=== PATIENT | male | born 2000 | race Caucasian/White ===

== ENCOUNTER 2025-01-08 11:44 | Emergency (ER) | payer BC ==
[2025-01-08 13:18] LABS: BASOPHILS ABSOLUTE AUTO 0.07 K/uL (0.00-0.10); EOSINOPHILS ABSOLUTE AUTO 0.26 K/uL (0.00-0.40); EOSINOPHILS PERCENT AUTO 3.7 % (0.0-5.4); HEMATOCRIT 39.3 % (38.4-49.7); HEMOGLOBIN 13.8 g/dL (12.9-16.9); IMMATURE GRAN PERCENT AUTO 0.3 % (0.0-0.7); LYMPHOCYTES ABSOLUTE AUTO 1.63 K/uL (0.8-3.3); LYMPHOCYTES PERCENT AUTO 23.4 % (11.4-47.7); MEAN CORPUSCULAR HEMOGLOBIN 30.5 pg (31.6-35.5); MEAN CORPUSCULAR HGB CONC 35.1 g/dL (31.6-35.5); MEAN CORPUSCULAR VOLUME 86.9 fL (81.4-99.0); MONOCYTES ABSOLUTE AUTO 0.59 K/uL (0.20-0.90); MONOCYTES PERCENT AUTO 8.5 % (3.3-12.6); NEUTROPHILS ABSOLUTE AUTO 4.39 K/uL (1.0-7.6); NEUTROPHILS PERCENT AUTO 63.1 % (40.0-78.1); PLATELET COUNT,PLT 197 K/uL (130-375); RED BLOOD CELL COUNT 4.52 M/uL (4.14-5.76)
[2025-01-08 13:19] LABS: IMMATURE GRAN ABSOLUTE AUTO 0.02 K/uL (0.00-0.23)
[2025-01-08] MEDS: Sodium Chloride 0.9% 1,000 ML IV ONE ×2 (13:29→15:36)
[2025-01-08 13:33] LABS: APPEARANCE,URINE CLEAR (CLEAR); BILIRUBIN,URINE NEGATIVE (NEGATIVE); COLOR,URINE YELLOW (YELLOW); GLUCOSE,URINE NEGATIVE (NEGATIVE); KETONES,URINE NEGATIVE (NEGATIVE); LEUKOCYTE ESTERASE,URINE NEGATIVE (NEGATIVE); NITRITE,URINE NEGATIVE (NEGATIVE); OCCULT BLOOD,URINE NEGATIVE (NEGATIVE); PROTEIN,URINE NEGATIVE (NEGATIVE); UROBILINOGEN,URINE 0.2 EU/dL (0.2-1.0)
[2025-01-08 13:40] LABS: A/G RATIO 0.9 (1.2-2.2); ALANINE AMINOTRANSFERASE,ALT 31 U/L (12-78); ALBUMIN 3.6 g/dL (3.4-5.0); ALKALINE PHOSPHATASE 73 U/L (46-116); ANION GAP 9.7 mmol/L (5.0-14.0); ASPARTATE AMNIOTRANSFERASE,AST 17 U/L (15-37); BILIRUBIN TOTAL 0.7 mg/dL (0.2-1.0); BLOOD UREA NITROGEN,BUN 12 mg/dL (7-18); CALCIUM 9.5 mg/dL (8.5-10.1); CARBON DIOXIDE,CO2 28 mmol/L (21-32); CHLORIDE,CL 104 mmol/L (100-108); CREATININE 1.3 mg/dL (0.8-1.3); EST CRCL DRUG DOSING (CG) 95.34 mL/min; ESTIMATED GFR 78 mL/min (>60); GLUCOSE RANDOM 100 mg/dL (74-106); POTASSIUM,K 4.1 mmol/L (3.6-5.2); PROTEIN TOTAL,TP 7.5 g/dL (6.4-8.2); SODIUM,NA 142 mmol/L (140-148)
[2025-01-08 13:40] LABS: AMORPHOUS SEDIMENT,URINE RARE; BACTERIA,URINE NOT SEEN; EPITHELIAL CELLS,URINE NOT SEEN; MUCUS,URINE NOT SEEN; RBC,URINE NOT SEEN (0-5); WBC,URINE NOT SEEN (0-5)
[2025-01-08] MEDS: Iopamidol 612 MG/ML 100 ML Bottle IV PRN (13:43)
[2025-01-08] MEDS: Sodium Chloride 0.9% 80 ML IV SCH (13:43)
[2025-01-08] MEDS: Sodium Chloride 0.9% 10 ML Syringe FLUSH ONE ×2 (13:43→15:31)
[2025-01-08 14:09] LABS: LYME AB IgG Negative (Negative); LYME AB IgM Negative (Negative)
[2025-01-08] MEDS: Iopamidol 755 Mg/ML 100 ML Bottle IV SCH (15:31)
[2025-01-08] MEDS: Sodium Chloride 0.9% 100 ML IV SCH (15:31)
[2025-01-12 16:55] LABS: ALPHA FETOPROTEIN TUMOR MARKER 1 ng/mL (0-9)
[2025-01-13 03:03] LABS: HSV TYPE 1/2 COMBINED AB, IGG 1.77 IV
[2025-01-13 04:45] LABS: HSV 2 GLYCOPROTEIN G AB, IGG 0.04 IV (<=0.89)
[2025-01-13 04:50] LABS: HSV 1 GLYCOPROTEIN G AB, IGG 0.18 IV (<=0.89)
[2025-01-17 20:16] LABS: BLASTOMYCES ANTIBODIES BY ID Not Detected (Not Detected)
== END 2025-01-08 18:45 | disposition home or self-care (01) ==
LOC: JP.ED 11:44
DX: R91.8 Other nonspecific abnormal finding of lung field (principal); R10.30 Lower abdominal pain, unspecified; Z79.899 Other long term (current) drug therapy
CPT/HCPCS: 36415; 71046; 71275; 74177; 76870; 80053; 81001; 82105; 84702; 85025; 86140; 86612; 86618; 86694; 86695; 86696; 87426; 93005; 93976; 96360; 99283; 99285; J7030; Q9967